=== PATIENT | male | born 1955 | race Caucasian/White ===

== ENCOUNTER 2020-11-12 19:56 | Emergency (ER) | payer SELFPAY ==
--- NOTE | 2020-11-12 20:38 | NUR ---
CALLED PATIENT BACK NO RESPONSE.
--- NOTE | 2020-11-12 21:00 | NUR ---
PATIENT LEFT WITHOUT BEING SEEN BY DR. PARKER. NO FURTHER CARE PROVIDED FOR PATIENT.
== END 2020-11-12 20:38 | disposition left against medical advice (07) ==
LOC: MED 19:56
DX: Z53.21 Procedure and treatment not carried out due to patient leaving prior to being seen by health care provider (principal)